=== PATIENT | female | born 1960 | race Caucasian/White ===

== ENCOUNTER 2016-09-19 14:42 | Emergency (ER) | payer SELFPAY ==
--- NOTE | 2016-09-20 13:27 | ER ---
ADMIT: 09/19/2016 RM/LOC: ER [facility] MR#: [id number] [id number] JENA ARAIZANDA Miguel [address] [place] [address] Emergency Room Report SEX: F AGE: 55 : 1960 DATE: 09/19/2016 The patient is a 55-year-old lady with past medical history of pneumonia and asthma came to the ER with chief complaint of left hip pain for the last 2 days. Patient states she was dressed, then she noticed she had left hip pain and she was limping since then. The patient denies any back pain, saddle anesthesia, weakness, numbness, urinary, or stool incontinence or retention. The patient could not recall any trauma. The patient states pain goes from the hip to the mid left thigh. The patient denies any urinary symptoms. PHYSICAL EXAMINATION: Patient was quietly sitting in the bed in no obvious distress. While asked the patient to walk, she had no weakness, could stand on the heel and toes without any difficulties but was mildly limping on the left side. Range of motion of the left hip actively and passively was normal. HEAD AND NECK: Normal. CHEST: Clear to auscultation. Normal heart sounds. ABDOMEN: Soft. NEURO: Straight leg raise was negative. The rest of the physical exam was noncontributory. Motor and sensory exam and the rest of the neurological exam were normal. CT scan of the left hip did not show any acute changes or abnormalities. Pain was controlled with [place]. The patient was advised to follow up with the primary doctor. The patient was discharged home with advised taking Tylenol for pain and just a few, 10 [place], for breakthrough pain if needed every 6 hours. The patient was advised to come back to the ER if there is any urinary or stool incontinence or retention, weakness, numbness, back pain or any questions or concerns. The patient acknowledged she understood and agreed with the plan. Surya Eastman MD/ lucila JOB #: [id number] CC: Triston Mireles MD, Attending Physician [facility], Family Physician
[2017-02-22] MEDS ORDERED: COLACE-DPS100 MG PO (14:04)
[2017-02-22] MEDS ORDERED: DELTASONE DPS20 MG PO (14:04)
[2017-02-22] MEDS ORDERED: MONTELUKAST SOD10 MG PO (14:04)
[2017-02-22] MEDS ORDERED: DULERA 200/58.8 GM IH (14:05)
[2017-02-22] MEDS ORDERED: PEPCID DPS20 MG PO (14:05)
[2017-02-22] MEDS ORDERED: NICOTINE PATCH1 EAC5 TD (14:06)
[2017-02-22] MEDS ORDERED: DUONEB DPS3 ML IH (14:06)
[2017-02-22] MEDS ORDERED: MAALOX DPS30 ML PO (14:06)
[2017-02-22] MEDS ORDERED: MILK OF MAGNESI10 ML PO (14:07)
[2017-02-22] MEDS ORDERED: AZITHROMYCIN250 MG PO (14:08)
[2017-02-22] MEDS ORDERED: TYLENOL DPS325 MG PO (14:08)
== END 2016-09-19 16:34 | disposition home or self-care (01) ==
LOC: ER 14:42
DX: M25.552 Pain in left hip (principal); J45.909 Unspecified asthma, uncomplicated; F17.210 Nicotine dependence, cigarettes, uncomplicated; Z88.5 Allergy status to narcotic agent; Z79.899 Other long term (current) drug therapy